=== PATIENT | female | born 1950 | race Caucasian/White ===

== ENCOUNTER 2020-12-02 14:03 | Observation (INO) | payer MEDICARE, SELFPAY ==
[2020-12-02] VITALS (14 sets, daily range): BP systolic 105–133; BP diastolic 57–108; PULSE 74–90; RESP 16–20; TEMP 36.2–36.5; O2SAT 98–100
--- NOTE | ~2020-12-02 | XR_ITS ---
XR chest 1V portable DATE: 12/02/2020 14:31 INDICATION: Weakness. TECHNIQUE: Portable upright AP chest on 12/02/2020 1428 hours COMPARISON: 01/18/2018 PA and lateral chest FINDINGS: There is prominent dextroscoliosis and degenerative spurring of the thoracic spine. Diffuse osteopenia. No pulmonary infiltrate or consolidation, pleural effusion or pulmonary vascular congestion or pneumo thorax is evident. Heart size appears within normal limits. IMPRESSION: No active cardiopulmonary disease Reviewed, dictated and finalized at location A.
--- NOTE | 2020-12-02 14:06 | ECG_ITS ---
Measurements Intervals [place] Rate: 80 P: 40 NH: 137 QRS: 57 QRSD: 95 T: 18 QT: 364 QTc: 422 Interpretive Statements SINUS RHYTHM BORDERLINE ST-T WAVE ABNORMALITY- ANTEROLAT/INF LEADS BASELINE ARTIFACT- I, II, III, AVR, AVL, AVF, V1-V6 BORDERLINE ECG Electronically Signed On 12-02-2020 16:14:43 CDT by Kedar Guzman D.O.
[2020-12-02 14:26] LABS: Basophils Percent Auto 0.4 % (0.2-1.2); Eosinophils Absolute Auto 0.2 K/mm3 (0-0.3); Eosinophils Percent Auto 2.7 % (0-4.4); Hematocrit 39.7 % (37.0-47.0); Immature Granulocyte Absolute 0.02 K/mm3 (0.00-0.031); Immature Granulocyte Percent A 0.3 % (0-0.5); Lymphocytes Absolute Auto 1.81 K/mm3 (0.9-3.2); Lymphocytes Percent Auto 24.2 % (18.3-44.2); Mean Corpuscular HGB Conc 35.3 g/dl (32-36); Mean Corpuscular Hemoglobin 31.3 pg (26-34); Mean Corpuscular Volume 88.6 fl (80-100); Mean Platelet Volume 10.8 fl (7.4-10.4); Monocytes Absolute Auto 0.6 K/mm3 (0.1-0.6); Monocytes Percent Auto 8.3 % (2.6-8.5); Neutrophils Absolute Auto 4.8 K/mm3 (1.3-6.7); Neutrophils Percent Auto 64.1 % (45.5-73.1); Platelet Count Result 306 k/mm3 (150-375); Red Blood Count 4.48 M/mm3 (4.2-5.4); Red Cell Distribution Width 12.2 % (11.5-14.5); White Blood Count 7.5 K/mm3 (4.5-10.0)
[2020-12-02 14:32] LABS: Potassium 3.7 mmol/L (3.4-5.0)
[2020-12-02 14:36] LABS: Alanine Aminotransferase 40 U/L (4-35); Albumin Level 4.3 g/dL (3.5-5.1); Alkaline Phosphatase 59 U/L (38-126); Anion Gap 10 mmol/L (8-16); Aspartate Amino Transferase 34 U/L (14-36); Bilirubin,Total 0.6 mg/dL (0.2-1.3); Blood Urea Nitrogen 31 mg/dL (7-17); Calcium 8.3 mg/dL (8.4-10.2); Carbon Dioxide 24 mmol/L (22-30); Chloride 93 mmol/L (98-107); Estimated Glomerular Filt Rate 44; Glucose 126 mg/dL (65-105); Sodium 127 mmol/L (137-145)
[2020-12-02 14:43] LABS: Add Urine Microscopic? YES; Appearance Urine Cloudy (Clear); Bacteria Urine 2+ /hpf; Bilirubin Urine Negative (Negative); Blood Urine Negative (Negative); Color Urine Amber (Yellow); Glucose Urine UA Negative (Negative); Hyaline Casts Urine 20-29 /lpf; Ketones Urine Trace mg/dL (Negative); Leukocyte Esterase Ur 3+ LEU/UL (Negative); Mucus Urine Moderate /lpf; Nitrate Urine Negative (Negative); Protein Urine 1+ mg/dL (Negative); Specific Grav Ur 1.017 (1.001-1.035); Squamous Epithelial Cell Urine Many /hpf (Few); WBC Urine >75 /hpf
[2020-12-02 14:45] LABS: Troponin I < 0.012 ng/mL (0.000-0.034)
[2020-12-02] MEDS: SODIUM CHLORIDE 0.9% IV 1,000 ML 999 ML IV CONT (15:31)
--- NOTE | 2020-12-02 15:43 | ED.WEAKNESS ---
HPI - Weakness General Chief complaint: Weakness Stated complaint: WEAKNESS/DIZZY Time Seen by Provider: 12/02/20 14:05 Source: patient, family, RN notes reviewed and old records reviewed Mode of arrival: ambulatory Limitations: no limitations History of Present Illness HPI Narrative: Patient is 69 years old white female presented to the ED with generalized weakness nausea vomiting, or other vomiting, dizziness and lightheadedness. PT had buzzing in the ears, started on Decadron and Claritin by her ENT Friday, 1 day later started having nausea and vomiting, poor appetite, not feeling well, today was not able to get out her bed without processing assistant, her was trying to assist her to the bathroom, patient almost collapsed on the floor, does not remember exactly what happened. Currently patient is asymptomatic. Patient denies any fever, chills, headache, chest pain, palpitation, shortness of breath, abdominal pain or back pain. Related Data Home Medications Medication Instructions Recorded Confirmed calcium citrate 315 mg 1 tablet PO BID 11/22/19 07/31/20 calcium-vitamin D3 6.25 mcg (250 unit) tablet risedronate 150 mg tablet 150 mg PO MONTHLY 11/22/19 07/31/20 fluticasone propionate 50 See Rx Instructions INTRANASAL 07/31/20 07/31/20 mcg/actuation nasal DAILY spray,suspension docusate sodium [Colace] 50 mg PO DAILY 12/02/20 loratadine [Claritin] 10 mg PO DAILY 12/02/20 mecobalamin (vitamin B12) 1,000 mcg PO DAILY 12/02/20 wheat dextrin [Benefiber (wheat g PO 12/02/20 dextrin)] Allergies Allergy/AdvReac Type Severity Reaction Status Date / Time No Known Allergies Allergy Unverified 12/02/20 14:04 Review of Systems Review of Systems: Narrative: CONSTITUTIONAL: Denies fever, chills, or sweats. EYES: Denies visual changes, redness, or discharge. ENT: Denies rhinorrhea, congestion, sore throat, or otalgia. CARDIOVASCULAR: Denies chest pain, palpitations, or edema. RESPIRATORY: Denies cough or dyspnea. GASTROINTESTINAL: Denies abdominal pain, nausea, vomiting, or diarrhea. GENITOURINARY: Denies dysuria or hematuria. SKIN: Denies rash or itching. MUSCULOSKELETAL: Denies back pain, joint pain, or myalgia. NEUROLOGIC: Denies headache, numbness, or weakness. PSYCHIATRIC: Denies anxiety or depression. [facility] Past Medical History Medical History (Updated 12/02/20 @ 15:52 by Colleen Rajput MD) FH: cholecystectomy (~1999) Gastric outlet obstruction (~2014) Hemorrhoids History of high blood pressure History of one miscarriage Paraesophageal hernia (~2014) Family History Family History Mother Family history of Alzheimer's disease Father Family history of diabetes mellitus in first degree relative Patient's father is Diabetes mellitus Myelodysplasia (myelodysplastic syndrome) Sibling Multiple sclerosis Alzheimer disease Social History Social History Smoking status: Never smoker Alcohol intake: never Gender identity (if verbalized by the patient): Female Exam Narrative: Exam Narrative: General appearance: Well-developed, well-nourished Skin: Normal color Head: Normocephalic, nontraumatic Eyes: Clear conjunctiva ENT: Oropharynx normal, ears normal, nose normal Neck: Supple, nontender Chest and respiratory: Airway patent, no respiratory distress, no accessory muscle use Heart: Regular rate/rhythm Abdomen: Soft, nontender, no organomegaly, quiet bowel sounds Vascular: Normal peripheral pulses, normal capillary refill. Musculoskeletal: Normal range of motion, nontender back Neurologic: Alert and oriented ?3, [employer] is normal as tested, no gross motor deficit
--- NOTE | 2020-12-02 17:39 | PC.NURSE ---
This patient, Judith Rizvi, was admitted to [facility] Surg Room 321-01. Patient/family oriented to hospital policies and general routines including ID bracelet, bed and alarms, visiting hours, pain management, procedures, bathroom and other care routines, personal items, smoking policy, room service/diet, and visiting hours. Information on how to activate the Rapid Response Team has been discussed. Patient/Family are encouraged to report perceived risks to care and to ask questions if they do not understand what they are told or what they should do.
[2020-12-02 19:09] LABS: Magnesium 1.7 mg/dL (1.6-2.3)
[2020-12-02 19:10] LABS: Anion Gap 9 mmol/L (8-16); Blood Urea Nitrogen 24 mg/dL (7-17); Calcium 7.8 mg/dL (8.4-10.2); Carbon Dioxide 22 mmol/L (22-30); Chloride 101 mmol/L (98-107); Estimated Glomerular Filt Rate 55; Glucose 102 mg/dL (65-105); Potassium 3.8 mmol/L (3.4-5.0); Sodium 132 mmol/L (137-145)
[2020-12-02] MEDS: SODIUM CHLORIDE 0.9% IV 1,000 ML 125 ML IV CONT (19:39)
[2020-12-02 20:10] LABS: Thyroid Stimulating Hormone Reflex 0.743 uIU/mL (0.465-4.68)
--- NOTE | 2020-12-02 21:30 | PM.IMHP ---
H&P: HPI History of Present Illness Date/Time: 12/02/20 21:30 Chief Complaint: Weakness and dizziness. Narrative: This is a 69-year-old female with hypertension, hyperlipidemia, and iron deficiency anemia who presented to the emergency department earlier today for evaluation of weakness and dizziness. Over the last week or so she has been experiencing a buzzing in her ears with mild vertigo. She was seen by her primary care provider last Friday and was prescribed Claritin-D and a Medrol Dosepak for ?fluid on my ears. Sometime on Friday after eating breakfast this she began to feel poorly, and had pretty severe vertigo for the rest of the day associated with nausea and dry heaves. She was able to sleep throughout the night but when she awoke on morning she once again had vertigo and nausea so she decided to stop taking the Claritin D and Medrol Dosepak as she thought perhaps those were the culprit. Unfortunately she continues to feel poorly and her oral intake has been not great due to the ongoing nausea. When she woke this morning she was ?woozy? and felt a bit lightheaded. She was able to eat some scrambled eggs for breakfast and a few crackers with tuna fish for lunch. Not long prior to arrival she developed diffuse abdominal cramping and felt need to have a bowel movement. She reports having an unremarkable bowel movement and returned back to the living room. Shortly thereafter she once again developed severe cramping, got up to go to the bathroom, and felt extremely lightheaded, sweaty, and nauseated at which time she apparently lost consciousness for a moment. Her was able to help her and she did not injure herself. In the emergency department her sodium level was found to be 12 points lower than on lab work done 8 days prior (139 --> 127). Her BUN and creatinine were also elevated comparatively. She is feeling better after receiving IV fluids with improvement in her sodium and creatinine the time of this dictation. She has never had a syncopal episode before. She has not been experiencing chest pain, pleuritic pain, palpitations, or shortness of breath. She denies sick contacts and exposure to those positive for COVID-19. Aside from the Medrol Dosepak and Claritin, she has not been taking any new medications. Review of Systems Review of Systems: Narrative: Twelve systems were reviewed with pertinent positives and negatives as per HPI. She denies fever and chills. She did have sweats today before her syncopal episode. No cough or shortness of breath. She denies cold and flu symptoms aside from the buzzing in fullness in her ear, which has improved. No focal weakness, paresthesias, auditory, or visual changes. No history of cardiac disease or dysrhythmia. She denies dysuria, urgency, and hesitancy but has noticed that her urine has smelled strong. No lower abdomen or back pain. Except as documented, all other systems were reviewed and are negative. [facility] Past Medical History Medical History (Updated 12/02/20 @ 23:23 by Kelly Alcantar PA-C) Anxiety Depression Gastroesophageal reflux disease Gout Hemorrhoids Hiatal hernia History of urinary tract infection Hyperlipidemia Hypertension Iron deficiency anemia Osteoarthritis Surgical History Surgical History (Updated 12/02/20 @ 23:22 by Kelly Alcantar PA-C) History of exploratory laparotomy (~1967) History of laparoscopic cholecystectomy (~03/2005) History of Leo fundoplication (~01/19/18) Laparoscopic repair of incarcerated paraesophageal hiatal hernia with Leo fundoplication by Dr. Stevens. History of parathyroidectomy (~2010) Family History Family History Mother Family history of Alzheimer's disease Father Family history of diabetes mellitus in first degree relative Patient's father is Diabetes mellitus Myelodysplasia (myelodysplastic syndrome) Sibling Ha
[2020-12-02 21:41] LABS: Creatinine Urine 28.5 mg/dL
[2020-12-02 21:43] LABS: Sodium Urine Random 46 meq/L
[2020-12-02] MEDS: carvediloL 25 MG TABLET PO (23:20)
[2020-12-02] MEDS: PRAVASTATIN SODIUM 20 MG TABLET PO (23:20)
[2020-12-03] VITALS: PULSE 81
[2020-12-03 00:06] LABS: Sodium 130 mmol/L (137-145)
[2020-12-03 03:32] VITALS: O2SAT 95
[2020-12-03 04:00] VITALS: PULSE 76
[2020-12-03] MEDS: SODIUM CHLORIDE 0.9% IV 1,000 ML 75 ML IV CONT (05:26)
[2020-12-03 06:00] VITALS: BP 128/68; PULSE 84; RESP 18; TEMP 36.4; O2SAT 99
[2020-12-03 06:02] LABS: Anion Gap 4 mmol/L (8-16); Blood Urea Nitrogen 18 mg/dL (7-17); Carbon Dioxide 25 mmol/L (22-30); Chloride 102 mmol/L (98-107); Estimated Glomerular Filt Rate > 60; Glucose 86 mg/dL (65-105); Potassium 3.5 mmol/L (3.4-5.0); Sodium 131 mmol/L (137-145)
[2020-12-03 08:00] VITALS: PULSE 82
[2020-12-03] MEDS: carvediloL 25 MG TABLET PO (08:34)
[2020-12-03] MEDS: SOLIFENACIN 5 MG TABLET 10 MG PO (08:34)
[2020-12-03] MEDS: CYANOCOBALAMIN 1,000 MCG TABLET 1000 MCG PO (08:35)
[2020-12-03] MEDS: POLYSACCHARIDE IRON COMPLEX 150 MG CAPSULE PO (08:35)
[2020-12-03] MEDS: LORATADINE 10 MG TABLET PO (08:35)
[2020-12-03] MEDS: DOCUSATE SODIUM 100 MG CAPSULE PO (08:35)
[2020-12-03] MEDS: FLUTICASONE PROPIONATE 0.05% NA SPR 16 GM BTL (*BKC) 2 SPRAY NASAL (08:35)
[2020-12-03 10:31] VITALS: BMI 24.5
[2020-12-03 12:00] VITALS: PULSE 87
--- NOTE | 2020-12-03 14:05 | PM.DS ---
DS: Admitting Diagnosis Admitting Diagnosis Admitting Diagnosis: Syncope DS: Discharge Diagnosis Discharge Diagnosis (1) Dehydration: Code(s): E86.0 - Dehydration Status: Acute Assessment and Plan: She had poor oral intake due to feeling unwell for several days with associated nausea and vomiting. She had elevated BUN and creatinine. This was also felt to be the reason for her hyponatremia. She was rehydrated with IV fluids. She appeared euvolemic following. Her labs improved. We discussed the importance of maintaining adequate oral intake. (2) Hyponatremia: Code(s): E87.1 - Hypo-osmolality and hyponatremia Status: Acute Assessment and Plan: She had outpatient labs 8 days prior to arrival with normal sodium levels (139). Upon arrival, sodium was decreased by 12 points at 127. FENa 1.2%. Likely related to dehydration as above and sodium improved with fluid resuscitation. Her hydrochlorothiazide was discontinued. She will repeat BMP in 1 week. (3) Vasovagal syncope: Code(s): R55 - Syncope and collapse Status: Acute Assessment and Plan: She felt lightheaded and sweaty upon standing to use the restroom, and reportedly lost consciousness for a brief moment. Seems vasovagal in origin and likely worsened by dehydration. She did not have associated chest pain, palpitations, or shortness of breath. She was not orthostatic. Telemetry reviewed which showed sinus rhythm with no arrhythmias or pauses. (4) Bacteriuria with pyuria: Code(s): R82.71 - Bacteriuria; R82.81 - Pyuria Status: Acute Assessment and Plan: UA shows bacteriuria and pyuria however she had no urinary symptoms. Urine culture negative. No need for antibiotic therapy. (5) Hypertension: Code(s): I10 - Essential (primary) hypertension Status: Acute Assessment and Plan: BP reviewed and was well controlled. Her home [id number] was discontinued. Olmesartan and amlodipine were resumed individually at same dose. Hydrochlorothiazide discontinued due to hyponatremia. DS: Summary Hospital Course Reason for hospitalization: Syncope Hospital Course: Date of admission: 12/02/2020 Date of discharge: 12/03/2020 Judith Rizvi is a 69-year-old female with history of hypertension, hyperlipidemia, iron deficiency anemia, and GERD who presented to the emergency department from home on 12/02/2020 with complaints of generalized weakness, dizziness, and lightheadedness and had a brief syncopal episode that afternoon. Upon presentation to the emergency department, her vital signs were stable, CBC unremarkable, sodium was 127, BUN 31, creatinine 1.2, additional electrolytes stable, urinalysis abnormal with 3+ leuk esterase and >75 WBC, however with many squamous cells, and chest x-ray showed no active cardiopulmonary disease. She was admitted to the hospitalist service for further evaluation and management. Please see above for further details. She was rehydrated. Her symptoms resolved and she began feeling much better. She requested discharge home. Given her overall improvement, she was determined to no longer require inpatient care and felt to be stable for discharge. We discussed worrisome signs and symptoms for which to return and she was educated on her medications. She was discharged in hemodynamically stable condition on 12/03/2020. Status at Discharge Functional status at discharge: independent ambulation Overall status at discharge: patient is back to baseline Time Spent with Patient Time attestation: Total time spent providing and/or coordinating discharge services: 45 minutes Time spent: Greater than 30 minutes Exam Narrative: Exam Narrative: Ms. Rizvi is a well-nourished, well-appearing 69-year-old female who is lying semi-recumbent in bed. She appears comfortable and is in NARD. Neuro: awake, alert and oriented x4, speech clear, no f
--- NOTE | 2020-12-03 15:07 | PC.NURSE ---
Pt has discharge orders. Pt has had IV removed, and tele box removed. Discharge paperwork has been reviewed with pt and her . Opportunities to ask questions was provided, and both exhibited good understanding of discharge instructions. Pt was assisted by wheelchair to her husbands car.
== END 2020-12-03 15:10 | disposition home or self-care (01) ==
LOC: ANHED 17:16 → ANH3MEDSUR 17:27
PROVIDERS: Physician Assistant; Admitting Provider Internal Medicine; Emergency Provider Emergency Medicine; PCP Emergency Medicine; Visit Provider Family Medicine
DX: E86.0 Dehydration (principal); E87.1 Hypo-osmolality and hyponatremia; R55 Syncope and collapse; R53.81 Other malaise; R82.81 Pyuria; I10 Essential (primary) hypertension; E78.5 Hyperlipidemia, unspecified; D50.9 Iron deficiency anemia, unspecified
CPT/HCPCS: 36415; 71045; 80048; 80053; 81001; 82570; 83735; 83930; 83935; 84295; 84300; 84443; 84484; 85025; 87086; 93005; 96361; 96365; 99285; A9270; G0378; J0696; J7030

== ENCOUNTER 2022-04-27 22:30 | Emergency (ER) | payer MEDICARE, SELFPAY ==
[2022-04-27 22:37] VITALS: BP 160/97; PULSE 92; RESP 17; TEMP 36.6; O2SAT 97
--- NOTE | 2022-04-27 22:43 | ED.DIZZY ---
HPI - Dizziness General Chief Complaint: Dizziness Stated Complaint: Vertigo, dizziness, feeling sick. Time Seen by Provider: 04/27/22 22:35 History of Present Illness HPI Narrative: 71-year-old female presents emergency room secondary some dizziness. She has been dealing with URI type symptoms for the last week to week and a half. She feels like her ears are plugged up. She got some symptoms that are consistent with vertigo. Described as spinning type sensation. She has had this before. She denies any focal weakness. She also has some loose stools which started today. She is vaccinated for COVID including the vaccination. Denies any shortness of breath. No chest pain. Related Data Home Medications Medication Instructions Recorded Confirmed calcium citrate 315 mg 1 tablet PO BID 11/22/19 07/28/21 calcium-vitamin D3 6.25 mcg (250 unit) tablet (Citracal + Vitamin D Maximum) risedronate 150 mg tablet 150 mg PO MONTHLY 11/22/19 07/28/21 fluticasone propionate 50 2 spray intranasal DAILY 07/31/20 07/28/21 mcg/actuation nasal spray,suspension (Flonase Allergy Relief) docusate sodium 50 mg capsule 50 mg PO DAILY 12/02/20 07/28/21 loratadine 10 mg tablet (Claritin) 10 mg PO DAILY 12/02/20 07/28/21 loratadine 10 mg tablet (Claritin) 10 mg PO DAILY 12/02/20 07/28/21 mecobalamin (vitamin B12) 1,000 1,000 mcg PO DAILY 12/02/20 07/28/21 mcg chewable tablet Allergies Allergy/AdvReac Type Severity Reaction Status Date / Time No Known Allergies Allergy Verified 04/27/22 22:41 Review of Systems Review of Systems: CONSTITUTIONAL: Denies fever, chills, or sweats. EYES: Denies visual changes, redness, or discharge. ENT: Nasal congestion as well as fullness to both upper ears CARDIOVASCULAR: Denies chest pain, palpitations, or edema. RESPIRATORY: Denies cough or dyspnea. GASTROINTESTINAL: Denies abdominal pain, nausea, vomiting. Having some loose stools daily GENITOURINARY: Denies dysuria or hematuria. SKIN: Denies rash or itching. MUSCULOSKELETAL: Denies back pain, joint pain, or myalgia. NEUROLOGIC: Denies headache, numbness, or weakness. PSYCHIATRIC: Denies anxiety or depression. [facility] Past Medical History Medical History Anxiety Depression Gastroesophageal reflux disease Gout Hemorrhoids Hiatal hernia History of urinary tract infection Hyperlipidemia Hypertension Iron deficiency anemia Osteoarthritis Surgical History Surgical History History of exploratory laparotomy (~1967) History of laparoscopic cholecystectomy (~03/2005) History of Leo fundoplication (~01/19/18) Laparoscopic repair of incarcerated paraesophageal hiatal hernia with Leo fundoplication by Dr. Stevens. History of parathyroidectomy (~2010) Family History Family History Mother Family history of Alzheimer's disease Father Family history of diabetes mellitus in first degree relative Patient's father is Diabetes mellitus Myelodysplasia (myelodysplastic syndrome) Sibling Multiple sclerosis Alzheimer disease Social History Social History Social History: Surrogate decision maker: Chaim Rizvi, . Code status: Full code. Smoking status: Never smoker Second hand tobacco smoke exposure: No Alcohol intake: never Substance use: never Additional living arrangements comments: Patient lives with her in [place]. Additional occupation/education comments: Retired. Gender identity (if verbalized by the patient): Female Sexual Orientation (if Verbalized by the Patient): Straight or Heterosexual Spiritual care concerns: No Exam Narrative: APPEARANCE: Well appearing, no pain or distress, well-nourished. Head Normocephalic and atraumatic. EYES: PERRLA/
[2022-04-27] MEDS: MECLIZINE HCL 25 MG TABLET PO (22:54)
[2022-04-27 23:30] LABS: SARS-CoV-2 RNA PCR Negative
[2022-04-28 00:07] VITALS: BP 122/80; PULSE 78; RESP 16; O2SAT 98
== END 2022-04-28 00:09 | disposition home or self-care (01) ==
PROVIDERS: Emergency Provider Emergency Medicine; PCP Emergency Medicine
DX: R42 Dizziness and giddiness (principal); H65.03 Acute serous otitis media, bilateral; Z20.822 Contact with and (suspected) exposure to COVID-19; E78.5 Hyperlipidemia, unspecified; I10 Essential (primary) hypertension; D50.9 Iron deficiency anemia, unspecified; K21.9 Gastro-esophageal reflux disease without esophagitis; M19.90 Unspecified osteoarthritis, unspecified site; M10.9 Gout, unspecified; Z87.440 Personal history of urinary (tract) infections; E89.2 Postprocedural hypoparathyroidism
CPT/HCPCS: 99283; A9270; C9803; U0003; U0005

== ENCOUNTER 2022-05-30 20:44 | Emergency (ER) | payer MEDICARE, SELFPAY ==
[2022-05-30] VITALS (14 sets, daily range): BP systolic 114–152; BP diastolic 62–117; PULSE 74–94; RESP 15–22; TEMP 37; O2SAT 95–100
--- NOTE | ~2022-05-30 | XR_ITS ---
EXAMINATION: XR chest 2V DATE: 05/30/2022 21:50 INDICATION: Chest pain. TECHNIQUE: Frontal and lateral views of the chest were obtained. COMPARISON: Chest single view 12/02/2020, CT abdomen and pelvis 01/16/2018 FINDINGS: There is no pneumonia, pleural effusion, or pneumothorax. The heart size is normal. Surgica l clips in the right upper quadrant are likely from cholecystectomy. IMPRESSION: 1. No acute cardiopulmonary disease. Reviewed, dictated and finalized at location A.
--- NOTE | 2022-05-30 20:45 | ECG_ITS ---
Measurements Intervals [place] Rate: 87 P: 17 [place]: 152 QRS: 3 QRSD: 85 T: -9 QT: 346 QTc: 418 Interpretive Statements SINUS RHYTHM BORDERLINE R WAVE PROGRESSION, ANTERIOR LEADS CONSIDER INFERIOR INFARCT, AGE INDETERMINATE BASELINE ARTIFACT- II, III, AVF ABNORMAL ECG COMPARED TO ECG 12/02/2020 14:09:39 NO SIGNIFICANT CHANGES Electronically Signed On 05-31-2022 21:17:42 CDT by Kedar Guzman D.O.
[2022-05-30 21:07] LABS: Basophils Percent Auto 0.4 % (0.2-1.2); Eosinophils Absolute Auto 0.2 K/mm3 (0-0.3); Eosinophils Percent Auto 2.6 % (0-4.4); Hematocrit 32.3 % (37.0-47.0); Hemoglobin 10.7 g/dL (12.0-15.0); Immature Granulocyte Absolute 0.02 K/mm3 (0.00-0.031); Immature Granulocyte Percent A 0.3 % (0-0.5); Lymphocytes Absolute Auto 1.39 K/mm3 (0.9-3.2); Lymphocytes Percent Auto 19.9 % (18.3-44.2); Mean Corpuscular HGB Conc 33.1 g/dl (32-36); Mean Corpuscular Hemoglobin 30.8 pg (26-34); Mean Corpuscular Volume 93.1 fl (80-100); Mean Platelet Volume 11.7 fl (7.4-10.4); Monocytes Absolute Auto 0.5 K/mm3 (0.1-0.6); Monocytes Percent Auto 7.3 % (2.6-8.5); Neutrophils Absolute Auto 4.9 K/mm3 (1.3-6.7); Neutrophils Percent Auto 69.5 % (45.5-73.1); Platelet Count Result 197 k/mm3 (150-375); Red Blood Count 3.47 M/mm3 (4.2-5.4); Red Cell Distribution Width 14.1 % (11.5-14.5)
[2022-05-30 21:18] LABS: INR 1.3; Partial Thromboplastin Time 26.5 SECONDS (22.3-36.8); Prothrombin Time 15.3 Seconds (11.1-14.7)
[2022-05-30 21:19] LABS: Alanine Aminotransferase 20 U/L (6-35); Albumin Level 3.9 g/dL (3.5-5.1); Alkaline Phosphatase 60 U/L (38-126); Anion Gap 6 mmol/L (8-16); Aspartate Amino Transferase 27 U/L (14-36); Bilirubin,Total 0.3 mg/dL (0.2-1.3); Blood Urea Nitrogen 12 mg/dL (7-17); Calcium 8.2 mg/dL (8.4-10.2); Carbon Dioxide 25 mmol/L (22-30); Chloride 107 mmol/L (98-107); Estimated CRCL calculation 46 ml/min; Estimated Glomerular Filt Rate > 60; Glucose 161 mg/dL (65-110); Lipase 61 U/L (23-300); Potassium 3.9 mmol/L (3.4-5.0); Sodium 138 mmol/L (137-145)
[2022-05-30 21:30] LABS: Troponin I < 0.012 ng/mL (0.000-0.034)
--- NOTE | 2022-05-30 22:31 | ED.CHESTPAIN ---
HPI - Chest Pain General Chief Complaint: Chest Pain Stated Complaint: chest pain Time Seen by Provider: 05/30/22 22:31 History of Present Illness HPI narrative: 71-year-old female here for evaluation of intermittent chest pain for the past day. Patient states the pain is described as a muscle spasm and is diffuse across her upper chest, worse with rotation of her thorax. States that she has been working out in the yard frequently and using her arms, notes soreness when she does this. States that the pain persisted for a little longer than usual today, which prompted her ED evaluation. Pain is gone at time of my evaluation without intervention. She denies any associated nausea, vomiting, diaphoresis, shortness of breath, fevers, chills, leg swelling. She has not attempted any medication. Related Data Home Medications Medication Instructions Recorded Confirmed calcium citrate 315 mg 1 tablet PO BID 11/22/19 07/28/21 calcium-vitamin D3 6.25 mcg (250 unit) tablet (Citracal + Vitamin D Maximum) risedronate 150 mg tablet 150 mg PO MONTHLY 11/22/19 07/28/21 fluticasone propionate 50 2 spray intranasal DAILY 07/31/20 07/28/21 mcg/actuation nasal spray,suspension (Flonase Allergy Relief) docusate sodium 50 mg capsule 50 mg PO DAILY 12/02/20 07/28/21 loratadine 10 mg tablet (Claritin) 10 mg PO DAILY 12/02/20 07/28/21 loratadine 10 mg tablet (Claritin) 10 mg PO DAILY 12/02/20 07/28/21 mecobalamin (vitamin B12) 1,000 1,000 mcg PO DAILY 12/02/20 07/28/21 mcg chewable tablet Allergies Allergy/AdvReac Type Severity Reaction Status Date / Time No Known Allergies Allergy Verified 04/27/22 22:41 Review of Systems Review of Systems: Gen: Denies fevers or chills Eyes: Denies eye pain or visual change ENT: Denies congestion Respiratory: Denies shortness of breath or cough CV: Reports chest pain. GI: Denies abdominal pain nausea, emesis or diarrhea : denies burning, urgency, frequency or hematuria Musculoskeletal: Denies back pain or muscle pain Neuro: Denies numbness, tingling, weakness or focal weakness Skin: Denies rash Except as documented, all other systems reviewed and negative PMFSH Past Medical History Medical History Anxiety Depression Gastroesophageal reflux disease Gout Hemorrhoids Hiatal hernia History of urinary tract infection Hyperlipidemia Hypertension Iron deficiency anemia Osteoarthritis Surgical History Surgical History History of exploratory laparotomy (~1967) History of laparoscopic cholecystectomy (~03/2005) History of Leo fundoplication (~01/19/18) Laparoscopic repair of incarcerated paraesophageal hiatal hernia with Leo fundoplication by Dr. Stevens. History of parathyroidectomy (~2010) Family History Family History Mother Family history of Alzheimer's disease Father Family history of diabetes mellitus in first degree relative Patient's father is Diabetes mellitus Myelodysplasia (myelodysplastic syndrome) Sibling Multiple sclerosis Alzheimer disease Social History Social History Social History: Surrogate decision maker: Chaim Rizvi, . Code status: Full code. Smoking status: Never smoker Second hand tobacco smoke exposure: No Alcohol intake: never Substance use: never Additional living arrangements comments: Patient lives with her in [place]. Additional occupation/education comments: Retired. Gender identity (if verbalized by the patient): Female Sexual Orientation (if Verbalized by the Patient): Straight or Heterosexual Spiritual care concerns: No Exam Narrative: APPEARANCE: Well appearing, no pain in distress, well-nourished. Head: Normocephalic and atraumat
[2022-05-31 00:23] LABS: Troponin I < 0.012 ng/mL (0.000-0.034)
== END 2022-05-31 00:49 | disposition home or self-care (01) ==
PROVIDERS: Emergency Medicine; Emergency Provider Emergency Medicine; PCP Emergency Medicine
DX: R07.89 Other chest pain (principal); E78.5 Hyperlipidemia, unspecified; I10 Essential (primary) hypertension; D50.9 Iron deficiency anemia, unspecified; K21.9 Gastro-esophageal reflux disease without esophagitis; M10.9 Gout, unspecified; M19.90 Unspecified osteoarthritis, unspecified site; E89.2 Postprocedural hypoparathyroidism; Z87.440 Personal history of urinary (tract) infections; R94.31 Abnormal electrocardiogram [ECG] [EKG]
CPT/HCPCS: 36415; 71046; 80053; 83690; 84484; 85025; 85610; 85730; 93005; 99284

== ENCOUNTER 2024-06-19 13:02 | Emergency (ER) | payer MEDICARE, SELFPAY ==
[2024-06-19 13:15] VITALS: BP 169/70; PULSE 94; RESP 16; TEMP 37.1; O2SAT 99
--- NOTE | 2024-06-19 13:18 | ED.URI ---
HPI - URI/Sore Throat General Chief Complaint: Upper Respiratory Infection Stated Complaint: head clogging Time Seen by Provider: 06/19/24 13:19 Source: patient, RN notes reviewed and old records reviewed Mode of arrival: ambulatory Limitations: no limitations History of Present Illness HPI Narrative: 73-year-old female presents to the [facility] with complaints head congestion. Reports ear fullness, nasal congestion. Has a history of vertigo and sinusitis. Patient reports that symptoms she thing started last week and maybe a day or 2 before Onset (ago): week(s) (About 1 week) Related Data Home Medications Medication Instructions Recorded Confirmed calcium 315 mg (as 1 tablet PO BID 11/22/19 06/19/24 citrate)-vitamin D3 6.25 mcg (250 unit) tablet (Citracal + Vitamin D Maximum) risedronate 150 mg tablet 150 mg PO MONTHLY 11/22/19 06/19/24 fluticasone propionate 50 2 spray intranasal DAILY 07/31/20 06/19/24 mcg/actuation nasal spray,suspension (Flonase Allergy Relief) docusate sodium 50 mg capsule 50 mg PO DAILY 12/02/20 06/19/24 loratadine 10 mg tablet (Claritin) 10 mg PO DAILY 12/02/20 06/19/24 Allergies Allergy/AdvReac Type Severity Reaction Status Date / Time No Known Allergies Allergy Verified 06/19/24 13:17 Review of Systems Review of Systems: All systems reviewed & are unremarkable except as noted in HPI and below Constitutional: Constitutional: Reports no additional constitutional complaints Eyes: Eyes: Reports no additional eye complaints ENT: Reports as per HPI, Reports otalgia and Reports nasal congestion Cardiovascular: Cardiovascular: Reports no additional cardiovascular complaints, Denies chest pain and Denies dyspnea Respiratory: Respiratory: Reports no additional respiratory complaints, Denies chest congestion, Denies cough and Denies dyspnea Gastrointestinal: Gastrointestinal: Reports no additional gastrointestinal complaints, Denies abdominal pain, Denies nausea and Denies vomiting Musculoskeletal: Musculoskeletal: Reports no additional musculoskeletal complaints Integumentary/Breasts: Skin/Breast: Reports system reviewed and no additional complaints, except as docu Neurologic: Reports system reviewed and no additional complaints, except as documented Psychiatric: Psychiatric: Reports no additional psychiatric complaints Allergic/Immunologic: Allergic/Immunologic: Reports no additional allergic/immunologic complaints PMFSH Past Medical History Medical History Allergic rhinitis caused by mold Anxiety B12 deficiency Depression Dysfunction of both eustachian tubes Environmental allergies Gastroesophageal reflux disease Gout Hemorrhoids Hiatal hernia History of urinary tract infection Hyperlipidemia Hyperparathyroidism, unspecified Hypertension Idiopathic gout, unspecified site Incarcerated paraesophageal hernia Iron deficiency anemia Iron deficiency anemia due to chronic blood loss Major depressive disorder, recurrent, moderate Osteoarthritis Osteopenia of multiple sites Overactive bladder Unilateral hearing loss Vertigo Surgical History Surgical History History of exploratory laparotomy (~1967) History of laparoscopic cholecystectomy (~03/2005) History of Leo fundoplication (~01/19/18) Laparoscopic repair of incarcerated paraesophageal hiatal hernia with Leo fundoplication by Dr. Stevens. History of parathyroidectomy (~2010) S/P Leo fundoplication (with gastrostomy tube placement) Family History Family History Mother Family history of Alzheimer's disease Father Family history of diabetes mellitus in first degree relative Patient's father is Diabetes mellitus Myelodysplasia (myelodysplastic syndrome) Sibling Multiple sclerosis Alzheimer disease Soci
== END 2024-06-19 13:33 | disposition home or self-care (01) ==
PROVIDERS: Emergency Provider Nurse Practitioner; PCP Emergency Medicine
DX: J32.9 Chronic sinusitis, unspecified (principal); J06.9 Acute upper respiratory infection, unspecified; E53.8 Deficiency of other specified B group vitamins; K21.9 Gastro-esophageal reflux disease without esophagitis; E78.5 Hyperlipidemia, unspecified; I10 Essential (primary) hypertension; F41.8 Other specified anxiety disorders
CPT/HCPCS: 99213; G0463

== ENCOUNTER 2025-04-19 08:24 | Emergency (ER) | payer MEDICARE, SELFPAY ==
--- OUTSIDE RECORDS SUMMARY | 2025-04-19 08:28 | XMS_ITS | Patient Health Record ---
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 Name Role Phone MILTON DOYLE Primary Care Provider [phone] Reason For Referral No Information Problems Problem Type SNOMED Code ICD Code Onset Dates Problem Status W/U Status Risk Notes Problem Primary hyperparathyroidism (84141325) Primary hyperparathyroidism (E21.0) 2013 Active confirmed [facility] [place] [place]-63 [address]10- Plan Of Treatment No Information Insurance Providers Payer Name Payer Address Payer Phone Subscriber Number Group Number Insured Name Patient Relationship to Insured Coverage Start Date Coverage End Date MEDICARE [address] [place] [address] [id number] Judith Rizvi Self - patient is the insured [place] PPO/PPC/FE P [address] [place] [address] [id number] Judith Rizvi Self - patient is the insured
[2025-04-19 08:40] VITALS: BP 156/75; PULSE 75; RESP 18; TEMP 36; O2SAT 100
--- NOTE | 2025-04-19 08:54 | ED.URI ---
HPI - URI/Sore Throat General Chief Complaint: Upper Respiratory Infection Stated Complaint: Sinus Infection Time Seen by Provider: 04/19/25 09:00 Source: patient and RN notes reviewed Mode of arrival: ambulatory Limitations: no limitations History of Present Illness HPI Narrative: 74-year-old female presents with concern for 5 day history of runny nose, stuffy nose, ear pressure and vertigo. Reports she gets vertigo when she has symptoms like this. She denies any headache, weakness in any extremity. She has not taken any medication for her symptoms. She reports postnasal drainage. She reports occasional cough. MD elicited complaint: rhinorrhea and nasal congestion Related Data Home Medications ?Medication ?Instructions ?Recorded ?Confirmed ?Last Taken ?Type risedronate 150 mg tablet 150 mg PO MONTHLY 11/22/19 02/25/25 Unknown History fluticasone propionate 50 2 spray intranasal DAILY 07/31/20 02/25/25 Unknown History mcg/actuation nasal spray,suspension (Flonase Allergy Relief) loratadine 10 mg tablet (Claritin) 10 mg PO DAILY 12/02/20 02/25/25 Unknown History pravastatin 20 mg tablet See Rx Instructions .Route .COMPLEX 08/27/24 02/25/25 Unknown History Allergies Allergy/AdvReac Type Severity Reaction Status Date / Time No Known Allergies Allergy Verified 04/19/25 08:46 Review of Systems Review of Systems: CONSTITUTIONAL: Denies malaise, chills, sweats, or fever. EYES: Denies visual changes, redness, or discharge. ENT: Reports rhinorrhea, congestion. Denies sinus pain, otalgia and sore throat. CARDIOVASCULAR: Denies chest pain, palpitations, or edema. RESPIRATORY: Reports occasional cough. Denies dyspnea. GASTROINTESTINAL: Denies abdominal pain, nausea, vomiting, diarrhea SKIN: Denies rash or itching. MUSCULOSKELETAL: Denies myalgia. NEUROLOGIC: Denies headache. All systems reviewed & are unremarkable except as noted in HPI and below PMFSH Past Medical History Medical History Vertigo Unilateral hearing loss Overactive bladder Osteopenia of multiple sites Major depressive disorder, recurrent, moderate Iron deficiency anemia due to chronic blood loss Incarcerated paraesophageal hernia Idiopathic gout, unspecified site Hyperparathyroidism, unspecified Environmental allergies Dysfunction of both eustachian tubes B12 deficiency Allergic rhinitis caused by mold Bacteriuria with pyuria Dehydration Hyperlipidemia Hypertension History of urinary tract infection Anxiety Osteoarthritis Gout Iron deficiency anemia Gastroesophageal reflux disease Hiatal hernia Depression JANNA (acute kidney injury) Acute hyponatremia Urinary tract infection Hemorrhoids High cholesterol Surgical History Surgical History S/P Leo fundoplication (with gastrostomy tube placement) History of Leo fundoplication (~01/19/18) Laparoscopic repair of incarcerated paraesophageal hiatal hernia with Leo fundoplication by Dr. Stevens. History of parathyroidectomy (~2010) History of laparoscopic cholecystectomy (~03/2005) History of exploratory laparotomy (~1967) Family History Family History Mother Family history of Alzheimer's disease Father Family history of diabetes mellitus in first degree relative Patient's father is Diabetes mellitus Myelodysplasia (myelodysplastic syndrome) Sibling Multiple sclerosis Alzheimer disease Social History Social History Social History: Surrogate decision maker: Chaim Rizvi, . Code status: Full code. Smoking status: Never smoker Second hand tobacco smoke exposure: No Alcohol intake: never Substance use: never Do You Feel Safe in your Home?: Yes Lack of Transportation: No Lack of Food: Never True Current Housing: I Have Housing Concerned About Future Housing: No Difficulty Paying Gas/Electric Bills: No Difficulty Paying for Meds: No Currently Unemployed: No Education: High School Diploma/GED Difficulty w/ Childcare or Family Care: No Additional living arrangements comments: Patient lives with her in [place]. Additional occupation/education comments: Retired. Gender identity (if verbalized by the patient): Female Sexual Orientation (if Verbalized by the Patient): Straight or Heterosexual Spiritual care concerns: No Comments At time of signature, agree with nursing past medical, surgical, social and family history. There is no relevant family history pertinent to the presenting complaint Exam Narrative: GENERAL: Well-appearing, well-nourished, and in no acute distress. HEAD: Normocephalic EYES: PERRLA, conjunctivae clear ENT: Nares clear, turbinates edematous and erythematous, clear discharge. Mucous membranes moist. TM pearly aleman with dull light reflex bilaterally; no tragal tenderness. Oropharynx not erythematous without lesions. Tonsils not enlarged and without exudate, no drooling, no hoarseness, no trismus, uvula midline. NECK: Supple. No lymphadenopathy CHEST: Clear to auscultation, breath sounds equal. No wheezing, rhonchi, rales, or stridor. No respiratory distress, speaks in full sentences. HEART: Regular rate and rhythm. No murmur heard. SKIN: Warm, dry, no rash. NEURO: Alert and oriented x3. No focal deficits, cranial nerves 2-12 grossly intact. PSYCH: Normal mood and affect Course Course Emergency Course: Patient is aware of diagnosis, understands and agrees to treatment plan. Anticipatory guidance given. Patient agrees to follow-up as directed and is aware of reasons to seek care at the emergency department. Portions of this record may have been created with voice recognition software Level of Care: Express Care Visit Vital Signs Vital signs: Vital Signs Temperature 96.8 F L 04/19/25 08:40 Pulse Rate 75 04/19/25 08:40 Respiratory Rate 18 04/19/25 08:40 Blood Pressure 156/75 H 04/19/25 08:40 Pulse Oximetry 100 04/19/25 08:40 Temperature 96.8 F L 04/19/25 08:40 Pulse Rate 75 04/19/25 08:40 Respiratory Rate 18 04/19/25 08:40 Blood Pressure 156/75 H 04/19/25 08:40 Pulse Oximetry 100 04/19/25 08:40 Reviewed. MDM - URI/Sore Throat MDM Narrative Medical decision making narrative: Differential diagnosis considered: Pandya virus, strep pharyngitis, allergic rhinitis, upper respiratory tract infection, sinusitis, rhinosinusitis, nasopharyngitis. viral pharyngitis, otitis media, otitis externa, pneumonia, bronchitis, viral cough syndrome, viral syndrome, and influenza. Exam findings show no acute concerns or changes; patient is non-toxic appearing and is in no distress. Patient is appropriate for outpatient treatment and follow-up. Lab Data Attestation: I reviewed the patient's lab results. Critical Care Time Critical Care Time Critical Care Time: No Discharge Plan Discharge Clinical Impression: Upper respiratory infection Patient Disposition: Home Condition: Stable Instructions: Upper Respiratory Infection (ED) Additional Instructions: Take medications as prescribed Viral illness may last between 7-21 days; antibiotics do not cure viral illness and are NOT recommended at this time. Recommend antihistamine such as Benadryl at night time and Zyrtec or [place] during the day Also, recommend symptomatic treatment includes: rest, fluids, and increase humidity of the air at home. Recommend Acetaminophen as directed on the bottle to reduce fever, pain, headache. Avoid smoking/second-hand smoke. Please schedule a follow-up visit with your personal physician for further evaluation and treatment within 3-5days. Including recheck and discussion of your blood pressure. If your symptoms persist, change or worsen significantly before you can contact your personal physician then please, without delay, go to the emergency department for further evaluation. Patient Language: Kosovan Prescriptions: New methylprednisolone [Medrol (Robin)] 4 mg tablets,dose pack See Rx Instructions .ROUTE .COMPLEX Qty: 21 0RF Rx Instructions: orally per package directions ipratropium bromide 21 mcg (0.03 %) spray,non-aerosol 2 spray NASAL TID PRN (Reason: nasal drainage) Qty: 30 0RF Rx Instructions: administer into each nostril No Action fluticasone propionate [Flonase Allergy Relief] 50 mcg/actuation spray,suspension 2 spray intranasal DAILY risedronate 150 mg tablet 150 mg PO MONTHLY Patient Comments: NEXT DOSE DUE ON 2020 Rx Instructions: administer at least 30 minutes before the first food or drink of the day other than water. pravastatin 20 mg tablet See Rx Instructions .ROUTE .COMPLEX Dose Instruction: TAKE 1 TABLET BY MOUTH DAILY Rx Instructions: TAKE 1/2 TABLET BY MOUTH DAILY amlodipine 10 mg tablet 10 mg PO DAILY Qty: 90 2RF loratadine [Claritin] 10 mg Tablet 10 mg PO DAILY carvedilol 25 mg tablet See Rx Instructions .ROUTE .COMPLEX Qty: 180 2RF Dose Instruction: TAKE 1 TABLET BY MOUTH EVERY 12 HOURS Rx Instructions: TAKE 1 TABLET BY MOUTH EVERY 12 HOURS olmesartan 40 mg tablet See Rx Instructions .ROUTE .COMPLEX Qty: 90 2RF Dose Instruction: TAKE 1 TABLET BY MOUTH EVERY DAY Rx Instructions: TAKE 1 TABLET BY MOUTH EVERY DAY solifenacin 10 mg tablet See Rx Instructions .ROUTE .COMPLEX Qty: 90 2RF Dose Instruction: TAKE 1 TABLET BY MOUTH DAILY Rx Instructions: TAKE 1 TABLET BY MOUTH DAILY Follow-up/Referrals: Alton Hendricks MD [Primary Care Provider] - Time of Disposition: 09:13
== END 2025-04-19 09:20 | disposition home or self-care (01) ==
PROVIDERS: Emergency Provider Nurse Practitioner; PCP Emergency Medicine
DX: J06.9 Acute upper respiratory infection, unspecified (principal); N32.81 Overactive bladder; M85.80 Other specified disorders of bone density and structure, unspecified site; M10.00 Idiopathic gout, unspecified site; E21.3 Hyperparathyroidism, unspecified; I10 Essential (primary) hypertension; M19.90 Unspecified osteoarthritis, unspecified site; K21.9 Gastro-esophageal reflux disease without esophagitis; E78.00 Pure hypercholesterolemia, unspecified
CPT/HCPCS: 99213; G0463

== ENCOUNTER 2025-04-21 17:12 | Emergency (ER) | payer MEDICARE, SELFPAY ==
--- NOTE | ~2025-04-21 | XR_ITS ---
CHEST RADIOGRAPH, PA AND LATERAL CLINICAL HISTORY: epigastric abd pain . COMPARISON: 05/30/2022 TECHNIQUE: PA and lateral views of the chest. FINDINGS 40 degrees of dextroscoliotic curvature of the thoracic spine is identified. S shaped curvature of the thoracolumbar spine is noted. Left atrial enlargement is noted. The remainder of the cardiomediastinal silhouette is otherwise unremarkable. The lungs are clear. IMPRESSION: No focal infiltrate or effusion. Reviewed, dictated and finalized at location A.
--- NOTE | 2025-04-21 17:15 | ECG_ITS ---
Test Date: 2025-04-21 17:20:03 Measurements Intervals [place] Rate: 98 P: 36 SD: 148 QRS: 14 QRSD: 90 T: 6 QT: 333 QTc: 425 Interpretive Statements SINUS RHYTHM POSSIBLE LEFT ATRIAL ENLARGEMENT BORDERLINE R WAVE PROGRESSION, ANTERIOR LEADS BORDERLINE ST-T WAVE ABNORMALITY- INFERIOR LEADS BASELINE ARTIFACT- I, II, III, AVR, AVL, AVF, V1-V6 BORDERLINE ECG No previous ECG available for comparison Electronically Signed On 04-21-2025 20:16:55 CDT by Kedar Guzman D.O.
--- OUTSIDE RECORDS SUMMARY | 2025-04-21 17:15 | XMS_ITS | Patient Health Record ---
Author Organization [facility] Address [address] [place] [address] Care Team Providers Care Health Care Assistant Name Role Phone MILTON DOYLE Primary Care Provider [phone] Reason For Referral No Information Problems Problem Type SNOMED Code ICD Code Onset Dates Problem Status W/U Status Risk Notes Problem Primary hyperparathyroidism (02859591) Primary hyperparathyroidism (E21.0) 2013 Active confirmed [facility] [place]-63 3310- Plan Of Treatment No Information Insurance Providers Payer Name Payer Address Payer Phone Subscriber Number Group Number Insured Name Patient Relationship to Insured Coverage Start Date Coverage End Date MEDICARE [address] [place] [address] [id number] Judith Rizvi Self - patient is the insured [place] P[place]/PPC/FE P [address] [place] [address] [phone] [id number] Judith Rizvi Self - patient is the insured
[2025-04-21 17:40] VITALS: BP 159/115; PULSE 93; RESP 16; TEMP 36.7; O2SAT 99
--- NOTE | 2025-04-21 17:51 | ED_ITS ---
HPI - Abdominal Pain General Chief Complaint: Chest Pain <Candace Corrigan PA-C - Last Filed: 04/21/25 17:52> Stated Complaint: chest pain <Candace Corrigan PA-C - Last Filed: 04/21/25 17:52> Time Seen by Provider: 04/21/25 20:14 <Candace Corrigan PA-C - Last Filed: 04/21/25 17:52> Focused HPI: 74-year-old female who presents emergency department for epigastric abdominal pain that started 1.5 hours prior to arrival. Patient states she was lying on the couch when she developed a cramping sensation in her epigastrium. She states the pain has been intermittent since. She currently is not having any pain. She believes the pain worsens when she becomes ?worked up? or stress. She notes her approximately 2 years ago which is been causing her grief. She states she had potato soup for lunch around noon. She also notes she was recently started on a Medrol Dosepak for a upper respiratory infection by urgent care 2 days ago. She denies chest pain or shortness of breath, nausea or vomiting, fever. States she had a couple episodes of soft stools yesterday but that has since resolved. GENERAL: Well-appearing, well-nourished, and in no acute distress. HEAD: Normocephalic, atraumatic. CHEST: Clear to auscultation. ?No respiratory distress. ABD: Abdomen soft, nontender. No CVA tenderness HEART: Regular rate and rhythm.? NEURO: ?Alert and oriented x3. Patient screened in triage and initial orders placed.? ?Additional care and disposition to be based upon?diagnostic testing and treatment. <Candace Corrigan PA-C - Last Filed: 04/21/25 17:52> History of Present Illness HPI narrative: Agree with HPI <Niko Nuno MD - Last Filed: 04/21/25 22:02> Related Data Home Medications: Home Medications ?Medication ?Instructions ?Recorded ?Confirmed ?Last Taken ?Type risedronate 150 mg tablet 150 mg PO MONTHLY 11/22/19 02/25/25 Unknown History fluticasone propionate 50 2 spray intranasal DAILY 07/31/20 02/25/25 Unknown History mcg/actuation nasal spray,suspension (Flonase Allergy Relief) loratadine 10 mg tablet (Claritin) 10 mg PO DAILY 12/02/20 02/25/25 Unknown History pravastatin 20 mg tablet See Rx Instructions .Route .COMPLEX 08/27/24 02/25/25 Unknown History <Candace Corrigan PA-C - Last Filed: 04/21/25 17:52> Allergies/Adverse Reactions: Allergies Allergy/AdvReac Type Severity Reaction Status Date / Time No Known Allergies Allergy Verified 04/21/25 17:13 <Candace Corrigan PA-C - Last Filed: 04/21/25 17:52> Review of Systems 2 Review of Systems: Gen.: Denies fevers or chills Eyes: Denies eye pain or visual change ENT: Denies congestion Respiratory: Denies shortness of breath or cough CV: Denies chest pain or palpitations GI: Epigastric abdominal pain that is now resolved. Denies nausea, vomiting, diarrhea, constipation. denies burning, urgency, frequency or hematuria Musculoskeletal: Denies back pain or muscle pain Neuro: Denies numbness, tingling, weakness or focal weakness Skin: Denies rash Except as documented, all other systems reviewed and negative <Niko Nuno MD - Last Filed: 04/21/25 22:02> [facility] Past Medical History Medical History: Medical History Vertigo Unilateral hearing loss Overactive bladder Osteopenia of multiple sites Major depressive disorder, recurrent, moderate Iron deficiency anemia due to chronic blood loss Incarcerated paraesophageal hernia Idiopathic gout, unspecified site Hyperparathyroidism, unspecified Environmental allergies Dysfunction of both eustachian tubes B12 deficiency Allergic rhinitis caused by mold Bacteriuria with pyuria Dehydration Hyperlipidemia Hypertension History of urinary tract infection Anxiety Osteoarthritis Gout Iron deficiency anemia Gastroesophageal reflux disease Hiatal hernia Depression JANNA (acute kidney injury) Acute hyponatremia Urinary tract infection Hemorrhoids High cholesterol <Candace Corrigan PA-C - Last Filed: 04/21/25 17:52> Surgical History Surgical History: Surgical History S/P Leo fundoplication (with gastrostomy tube placement) History of Leo fundoplication (~01/19/18) Laparoscopic repair of incarcerated paraesophageal hiatal hernia with Leo fundoplication by Dr. Stevens. History of parathyroidectomy (~2010) History of laparoscopic cholecystectomy (~03/2005) History of exploratory laparotomy (~1967) <Candace Corrigan PA-C - Last Filed: 04/21/25 17:52> Family History Family History: Family History Mother Family history of Alzheimer's disease Father Family history of diabetes mellitus in first degree relative Patient's father is Diabetes mellitus Myelodysplasia (myelodysplastic syndrome) Sibling Multiple sclerosis Alzheimer disease <Candace Corrigan PA-C - Last Filed: 04/21/25 17:52> Social History Social History: Social History Social History: Surrogate decision maker: Chaim Rizvi, . Code status: Full code. Smoking status: Never smoker Second hand tobacco smoke exposure: No Alcohol intake: never Substance use: never Do You Feel Safe in your Home?: Yes Lack of Transportation: No Lack of Food: Never True Current Housing: I Have Housing Concerned About Future Housing: No Difficulty Paying Gas/Electric Bills: No Difficulty Paying for Meds: No Currently Unemployed: No Education: High School Diploma/GED Difficulty w/ Childcare or Family Care: No Additional living arrangements comments: Patient lives with her in [place]. Additional occupation/education comments: Retired. Gender identity (if verbalized by the patient): Female Sexual Orientation (if Verbalized by the Patient): Straight or Heterosexual Spiritual care concerns: No <Candace Corrigan PA-C - Last Filed: 04/21/25 17:52> Exam 2 Narrative: APPEARANCE: Mildly anxious, nontoxic, resting in bed EYES: EOMI HEENT: Normocephalic, atraumatic, OMM RESPIRATORY: No respiratory distress Clear to auscultation bilaterally with no rhonchi wheezing or rales. CARDIOVASCULAR: Regular rate and rhythm without murmurs rubs or gallops. ABDOMINAL: Soft, nontender, nondistended, no rebound or guarding MUSCULOSKELETAl: Moves all extremities. No clubbing, cyanosis or edema. NEURO: Awake and alert. Following commands, speech normal, no focal deficits SKIN:: Warm, dry. No rashes lesions or abrasions PSYCHIATRIC: Normal affect/mood, <Niko Nuno MD - Last Filed: 04/21/25 22:02> Course Vital Signs Vital signs: Vital Signs Temperature 98.0 F 04/21/25 17:40 Pulse Rate 93 04/21/25 17:40 Respiratory Rate 16 04/21/25 17:40 Blood Pressure 159/115 H 04/21/25 17:40 Pulse Oximetry 99 04/21/25 17:40 Oxygen Delivery Room Air 04/21/25 17:40 Temperature 98.0 F 04/21/25 17:40 Pulse Rate 82 04/21/25 20:50 Respiratory Rate 18 04/21/25 20:43 Blood Pressure 162/95 H 04/21/25 20:43 Pulse Oximetry 98 04/21/25 20:43 Oxygen Delivery Room Air 04/21/25 20:38 <Candace Corrigan PA-C - Last Filed: 04/21/25 17:52> Vital Signs Temperature 98.0 F 04/21/25 17:40 Pulse Rate 93 04/21/25 17:40 Respiratory Rate 16 04/21/25 17:40 Blood Pressure 159/115 H 04/21/25 17:40 Pulse Oximetry 99 04/21/25 17:40 Oxygen Delivery Room Air 04/21/25 17:40 Temperature 98.0 F 04/21/25 17:40 Pulse Rate 82 04/21/25 20:50 Respiratory Rate 18 04/21/25 20:43 Blood Pressure 162/95 H 04/21/25 20:43 Pulse Oximetry 98 04/21/25 20:43 Oxygen Delivery Room Air 04/21/25 20:38 <Niko Nuno MD - Last Filed: 04/21/25 22:02> MDM - Abdominal Pain MDM Narrative Medical decision making narrative: 74-year-old female presented to the ED for epigastric abdominal pain. Initial vital stable. Patient was asymptomatic by the time of my evaluation. Abdomen soft and nontender. Heart and lungs were clear. Initial EKG shows no concerning findings. Chest x-ray showed no acute process. CBC and CMP without significant abnormalities except for a noted hypocalcemia the patient was aware of and was being adequately worked on by her PCP. Initial troponin negative. Re-evaluation, patient continued to be asymptomatic. Repeat troponin was negative. Repeat EKG shows no concerning findings. Suspect some level of epigastric pain with anxiety especially in the setting of her dying couple years ago and her still having emotional distress related to it. She was advised follow-up with PCP in the next week for evaluation. Patient agreeable to plan. Given strict return precautions. <Niko Nuno MD - Last Filed: 04/21/25 22:02> Differential Diagnosis Differential diagnosis: Likely abdominal pain and other (costochondritis, ACS, muscle strain, GERD, PUD) <Niko Nuno MD - Last Filed: 04/21/25 22:02> Medical Records Attestation: I reviewed the patient's medical records. <Niko Nuno MD - Last Filed: 04/21/25 22:02> Lab Data Attestation: I reviewed the patient's lab results. <Niko Nuno MD - Last Filed: 04/21/25 22:02> Result diagrams: 04/21/25 18:42 04/21/25 18:42 <Candace Corrigan PA-C - Last Filed: 04/21/25 17:52> Labs: Lab Results 04/21/25 04/21/25 04/21/25 Range/Units 18:42 20:30 21:15 WBC 9.4 (4.5-10.0) K/mm3 RBC 4.01 L (4.2-5.4) M/mm3 Hgb 12.0 (12.0-15.0) g/dL Hct 37.0 (37.0-47.0) % MCV 92.3 (80-100) fl MCH 29.9 (26-34) pg MCHC 32.4 (32-36) g/dl RDW 14.6 H (11.5-14.5) % Plt Count 258 (150-375) k/mm3 MPV 11.1 H (7.4-10.4) fl Immature Gran % (Auto) 0.3 (0-0.5) % Neut % (Auto) 88.0 H (45.5-73.1) % Lymph % (Auto) 8.3 L (18.3-44.2) % [place] % (Auto) 3.1 (2.6-8.5) % Eos % (Auto) 0.1 (0-4.4) % Baso % (Auto) 0.2 (0.2-1.2) % Lymph # (Auto) 0.78 L (0.9-3.2) K/mm3 [place] # (Auto) 0.3 (0.1-0.6) K/mm3 Eos # (Auto) 0.0 (0-0.3) K/mm3 Baso # (Auto) 0.0 (0.0-0.1) K/mm3 Abs Immat Gran (auto) 0.03 (0.00-0.031) K/mm3 Absolute Neuts (auto) 8.3 H (1.3-6.7) K/mm3 Absolute Nucleated RBC 0.000 (0.0-0.012) K/mm3 Nucleated RBC % 0.0 (0.0-0.2) % PT 14.7 (11.1-14.7) Seconds INR 1.2 APTT 23.0 (22.3-36.8) Seconds Sodium 140 (137-145) mmol/L Potassium 4.3 (3.4-5.0) mmol/L Chloride 108 H (98-107) mmol/L Carbon Dioxide 23 (22-30) mmol/L Anion Gap 9 (4-12) mmol/L BUN 12 (7-17) mg/dL Creatinine 0.60 L (0.7-1.0) mg/dL Estim Creat Clear Calc Not Reportable Estimated GFR > 60 (59 - ) Glucose 111 H (65-110) mg/dL Calcium 7.8 L (8.4-10.2) mg/dL Total Bilirubin 0.3 (0.2-1.3) mg/dL AST 29 (14-36) U/L ALT 26 (6-35) U/L Alkaline Phosphatase 71 (38-126) U/L Troponin I < 0.012 < 0.012 (0.000-0.034) ng/mL Total Protein 7.7 (6.3-8.2) g/dL Albumin 4.4 (3.5-5.1) g/dL Lipase 57 (23-300) U/L Urine Color Yellow (Yellow) Urine Appearance Clear (Clear) Urine pH 6.5 (5.0-9.0) Ur Specific [place] 1.012 (1.001-1.035) Urine Protein Negative (Negative) mg/dL Urine Glucose (UA) Negative (Negative) mg/dL Urine Ketones Negative (Negative) mg/dL Ur Blood (Man) Negative (Negative) Urine Nitrate Negative (Negative) Urine Bilirubin Negative (Negative) Urine Urobilinogen 1.0 (<2.0) mg/dL Leukocyte Esterase Rfl 2+ H (Negative) SAMANTHA/UL Urine RBC 0-2 (0-2) /hpf Urine WBC 11-20 H (0-3) /hpf Ur Squamous Epith Cells None seen (Few) /hpf Urine Bacteria None seen /hpf Urine Casts 0-2 <Candace Corrigan PA-C - Last Filed: 04/21/25 17:52> Lab Results 04/21/25 04/21/25 04/21/25 Range/Units 18:42 20:30 21:15 WBC 9.4 (4.5-10.0) K/mm3 RBC 4.01 L (4.2-5.4) M/mm3 Hgb 12.0 (12.0-15.0) g/dL Hct 37.0 (37.0-47.0) % MCV 92.3 (80-100) fl MCH 29.9 (26-34) pg MCHC 32.4 (32-36) g/dl RDW 14.6 H (11.5-14.5) % Plt Count 258 (150-375) k/mm3 MPV 11.1 H (7.4-10.4) fl Immature Gran % (Auto) 0.3 (0-0.5) % Neut % (Auto) 88.0 H (45.5-73.1) % Lymph % (Auto) 8.3 L (18.3-44.2) % [place] % (Auto) 3.1 (2.6-8.5) % Eos % (Auto) 0.1 (0-4.4) % Baso % (Auto) 0.2 (0.2-1.2) % Lymph # (Auto) 0.78 L (0.9-3.2) K/mm3 [place] # (Auto) 0.3 (0.1-0.6) K/mm3 Eos # (Auto) 0.0 (0-0.3) K/mm3 Baso # (Auto) 0.0 (0.0-0.1) K/mm3 Abs Immat Gran (auto) 0.03 (0.00-0.031) K/mm3 Absolute Neuts (auto) 8.3 H (1.3-6.7) K/mm3 Absolute Nucleated RBC 0.000 (0.0-0.012) K/mm3 Nucleated RBC % 0.0 (0.0-0.2) % PT 14.7 (11.1-14.7) Seconds INR 1.2 APTT 23.0 (22.3-36.8) Seconds Sodium 140 (137-145) mmol/L Potassium 4.3 (3.4-5.0) mmol/L Chloride 108 H (98-107) mmol/L Carbon Dioxide 23 (22-30) mmol/L Anion Gap 9 (4-12) mmol/L BUN 12 (7-17) mg/dL Creatinine 0.60 L (0.7-1.0) mg/dL Estim Creat Clear Calc Not Reportable Estimated GFR > 60 (59 - ) Glucose 111 H (65-110) mg/dL Calcium 7.8 L (8.4-10.2) mg/dL Total Bilirubin 0.3 (0.2-1.3) mg/dL AST 29 (14-36) U/L ALT 26 (6-35) U/L Alkaline Phosphatase 71 (38-126) U/L Troponin I < 0.012 < 0.012 (0.000-0.034) ng/mL Total Protein 7.7 (6.3-8.2) g/dL Albumin 4.4 (3.5-5.1) g/dL Lipase 57 (23-300) U/L Urine Color Yellow (Yellow) Urine Appearance Clear (Clear) Urine pH 6.5 (5.0-9.0) Ur Specific [place] 1.012 (1.001-1.035) Urine Protein Negative (Negative) mg/dL Urine Glucose (UA) Negative (Negative) mg/dL Urine Ketones Negative (Negative) mg/dL Ur Blood (Man) Negative (Negative) Urine Nitrate Negative (Negative) Urine Bilirubin Negative (Negative) Urine Urobilinogen 1.0 (<2.0) mg/dL Leukocyte Esterase Rfl 2+ H (Negative) SAMANTHA/UL Urine RBC 0-2 (0-2) /hpf Urine WBC 11-20 H (0-3) /hpf Ur Squamous Epith Cells None seen (Few) /hpf Urine Bacteria None seen /hpf Urine Casts 0-2 <Niko Nuno MD - Last Filed: 04/21/25 22:02> Imaging Data Radiologist's impression: ITS Impressions Chest X-Ray 04/21/25 18:21 IMPRESSION: No focal infiltrate or effusion. <Candace Corrigan PA-C - Last Filed: 04/21/25 17:52> ITS Impressions Chest X-Ray 04/21/25 18:21 IMPRESSION: No focal infiltrate or effusion. <Niko Nuno MD - Last Filed: 04/21/25 22:02> ECG Data EKG #1: Attestation: I personally reviewed and interpreted this ECG as follows: <Niko Nuno MD - Last Filed: 04/21/25 22:02> ECG completion date: 04/21/25 <Niko Nuno MD - Last Filed: 04/21/25 22:02> ECG completion time: 21:35 <Niko Nuno MD - Last Filed: 04/21/25 22:02> Prior ECG tracings: not available for review <Niko Nuno MD - Last Filed: 04/21/25 22:02> Interpretation: Sinus rhythm with sinus arrhythmia, normal axis, normal intervals, poor R-wave progression, no acute ST or T-wave changes <Niko Nuno MD - Last Filed: 04/21/25 22:02> EKG #2: Attestation: I personally reviewed and interpreted this ECG as follows: <Niko Nuno MD - Last Filed: 04/21/25 22:02> ECG completion date: 04/21/25 <Niko Nuno MD - Last Filed: 04/21/25 22:02> ECG completion time: 21:35 <Niko Nuno MD - Last Filed: 04/21/25 22:02> Prior ECG tracings: available for review <Niko Nuno MD - Last Filed: 04/21/25 22:02> Interpretation: Sinus rhythm with sinus arrhythmia, normal axis, normal intervals no acute ST or T-wave changes. Compared to earlier, R-wave progression is slightly improved. <Niko Nuno MD - Last Filed: 04/21/25 22:02> Discharge Plan Discharge Clinical Impression: Abdominal pain, epigastric, Anxiety HTN (hypertension) Qualifiers: Hypertension type: essential hypertension Qualified Code(s): I10 - Essential (primary) hypertension <HEATH Marcelo Last Filed: 04/21/25 17:52> Patient Disposition: Home <HEATH Marcelo Last Filed: 04/21/25 17:52> Condition: Stable <HEATH Marcelo Last Filed: 04/21/25 17:52> Instructions: Antibiotic Form, Abdominal Pain (ED) <Candace Corrigan PA-C - Last Filed: 04/21/25 17:52> Patient Language: Bengali <HEATH Marcelo Last Filed: 04/21/25 17:52> Prescriptions: No Action methylprednisolone [Medrol (Robin)] 4 mg tablets,dose pack See Rx Instructions .ROUTE .COMPLEX Qty: 21 0RF Rx Instructions: orally per package directions ipratropium bromide 21 mcg (0.03 %) spray,non-aerosol 2 spray NASAL TID PRN (Reason: nasal drainage) Qty: 30 0RF Rx Instructions: administer into each nostril fluticasone propionate [Flonase Allergy Relief] 50 mcg/actuation spray,suspension 2 spray intranasal DAILY risedronate 150 mg tablet 150 mg PO MONTHLY Patient Comments: NEXT DOSE DUE ON 2020 Rx Instructions: administer at least 30 minutes before the first food or drink of the day other than water. pravastatin 20 mg tablet See Rx Instructions .ROUTE .COMPLEX Dose Instruction: TAKE 1 TABLET BY MOUTH DAILY Rx Instructions: TAKE 1/2 TABLET BY MOUTH DAILY amlodipine 10 mg tablet 10 mg PO DAILY Qty: 90 2RF loratadine [Claritin] 10 mg Tablet 10 mg PO DAILY carvedilol 25 mg tablet See Rx Instructions .ROUTE .COMPLEX Qty: 180 2RF Dose Instruction: TAKE 1 TABLET BY MOUTH EVERY 12 HOURS Rx Instructions: TAKE 1 TABLET BY MOUTH EVERY 12 HOURS olmesartan 40 mg tablet See Rx Instructions .ROUTE .COMPLEX Qty: 90 2RF Dose Instruction: TAKE 1 TABLET BY MOUTH EVERY DAY Rx Instructions: TAKE 1 TABLET BY MOUTH EVERY DAY solifenacin 10 mg tablet See Rx Instructions .ROUTE .COMPLEX Qty: 90 2RF Dose Instruction: TAKE 1 TABLET BY MOUTH DAILY Rx Instructions: TAKE 1 TABLET BY MOUTH DAILY <Candace Corrigan PA-C - Last Filed: 04/21/25 17:52> Follow-up/Referrals: Alton Hendricks MD [Primary Care Provider] - <Candace Corrigan PA-C - Last Filed: 04/21/25 17:52>
[2025-04-21 18:48] LABS: Hematocrit 37.0 % (37.0-47.0); Hemoglobin 12.0 g/dL (12.0-15.0); Immature Granulocyte Percent A 0.3 % (0-0.5); Lymphocytes Absolute Auto 0.78 K/mm3 (0.9-3.2); Mean Corpuscular HGB Conc 32.4 g/dl (32-36); Mean Corpuscular Hemoglobin 29.9 pg (26-34); Mean Corpuscular Volume 92.3 fl (80-100); Nucleated Red Blood Cells Absolute Auto 0.000 K/mm3 (0.0-0.012); Nucleated Red Blood Cells Perc 0.0 % (0.0-0.2); Platelet Count Result 258 k/mm3 (150-375); Red Blood Count 4.01 M/mm3 (4.2-5.4); White Blood Count 9.4 K/mm3 (4.5-10.0)
[2025-04-21 19:02] LABS: Alanine Aminotransferase 26 U/L (6-35); Albumin Level 4.4 g/dL (3.5-5.1); Alkaline Phosphatase 71 U/L (38-126); Anion Gap 9 mmol/L (4-12); Aspartate Amino Transferase 29 U/L (14-36); Bilirubin,Total 0.3 mg/dL (0.2-1.3); Blood Urea Nitrogen 12 mg/dL (7-17); Calcium 7.8 mg/dL (8.4-10.2); Carbon Dioxide 23 mmol/L (22-30); Chloride 108 mmol/L (98-107); Estimated Glomerular Filt Rate > 60; Glucose 111 mg/dL (65-110); Lipase 57 U/L (23-300); Potassium 4.3 mmol/L (3.4-5.0); Sodium 140 mmol/L (137-145); Total Protein 7.7 g/dL (6.3-8.2)
[2025-04-21 19:03] LABS: INR 1.2; Prothrombin Time 14.7 Seconds (11.1-14.7)
[2025-04-21 19:04] LABS: Partial Thromboplastin Time 23.0 Seconds (22.3-36.8)
[2025-04-21 19:13] LABS: Troponin I < 0.012 ng/mL (0.000-0.034)
[2025-04-21 20:38] VITALS: BP 180/108; PULSE 95; RESP 17; O2SAT 98
[2025-04-21 20:38] LABS: Add Urine Microscopic? YES; Appearance Urine Clear (Clear); Glucose Urine UA Negative (Negative); Leukocyte Esterase Ur 2+ LEU/UL (Negative); Nitrate Urine Negative (Negative); Non Pathogenic Casts 0-2; Specific Grav Ur 1.012 (1.001-1.035)
[2025-04-21 20:43] VITALS: BP 162/95; PULSE 87; RESP 18; O2SAT 98
[2025-04-21 20:50] VITALS: PULSE 82
[2025-04-21 21:42] LABS: Troponin I < 0.012 ng/mL (0.000-0.034)
--- NOTE | 2025-04-21 21:42 | ECG_ITS ---
Test Date: 2025-04-21 21:35:16 Measurements Intervals [place] Rate: 78 P: 38 ND: 149 QRS: 8 QRSD: 96 T: -11 QT: 386 QTc: 441 Interpretive Statements SINUS RHYTHM WITH ATRIAL PREMATURE COMPLEX DELAYED PRECORDIAL R/S TRANSITION BORDERLINE ST-T WAVE ABNORMALITY- INFERIOR LEADS BASELINE ARTIFACT- I, II, III, AVR, AVL, AVF, V1-V2 BORDERLINE ECG Compared to ECG 04/21/2025 17:20:03 No significant changes Electronically Signed On 04-22-2025 06:24:36 CDT by Kedar Guzman D.O.
[2025-04-21 22:01] VITALS: BP 154/79; PULSE 81; RESP 17; TEMP 36.5; O2SAT 99
== END 2025-04-21 22:02 | disposition home or self-care (01) ==
LOC: ANHED 21:52
PROVIDERS: Physician Assistant; Emergency Provider Student in an Organized Health Care Education/Training Program; PCP Emergency Medicine
DX: R10.13 Epigastric pain (principal); I10 Essential (primary) hypertension; F41.9 Anxiety disorder, unspecified; E78.00 Pure hypercholesterolemia, unspecified; N32.81 Overactive bladder; M10.00 Idiopathic gout, unspecified site; M85.89 Other specified disorders of bone density and structure, multiple sites; M19.90 Unspecified osteoarthritis, unspecified site; K21.9 Gastro-esophageal reflux disease without esophagitis; D50.9 Iron deficiency anemia, unspecified; Z87.440 Personal history of urinary (tract) infections; Z90.89 Acquired absence of other organs; Z90.49 Acquired absence of other specified parts of digestive tract; Z79.899 Other long term (current) drug therapy; R94.31 Abnormal electrocardiogram [ECG] [EKG]
CPT/HCPCS: 36415; 71046; 80053; 81001; 83690; 84484; 85025; 85610; 85730; 87086; 93005; 99284; A9270

== ENCOUNTER 2025-05-03 10:24 | Emergency (ER) | payer MEDICARE, SELFPAY ==
[2025-05-03 10:31] VITALS: BP 132/72; PULSE 87; RESP 19; TEMP 36.7; O2SAT 99
--- OUTSIDE RECORDS SUMMARY | 2025-05-03 10:52 | XMS_ITS | Patient Health Record ---
Author Organization [facility] Address [address] [place] [address] Care Team Providers Care Project Control Analyst Name Role Phone MILTON DOYLE Primary Care Provider [phone] Reason For Referral No Information Problems Problem Type SNOMED Code ICD Code Onset Dates Problem Status W/U Status Risk Notes Problem Primary hyperparathyroidism (63849203) Primary hyperparathyroidism (E21.0) 2013 Active confirmed [facility] [id number] Plan Of Treatment No Information Insurance Providers Payer Name Payer Address Payer Phone Subscriber Number Group Number Insured Name Patient Relationship to Insured Coverage Start Date Coverage End Date MEDICARE [address] [place] [address] [id number] Judith Rizvi Self - patient is the insured [employer] BLUE PPO/PPC/FE P [address] [place] [address] [phone] [id number] Judith Rizvi Self - patient is the insured
--- NOTE | 2025-05-03 10:59 | ED.URI ---
HPI - URI/Sore Throat General Chief Complaint: Upper Respiratory Infection Stated Complaint: Sinus Infection Time Seen by Provider: 05/03/25 10:30 Source: patient and RN notes reviewed Mode of arrival: ambulatory Limitations: no limitations History of Present Illness HPI Narrative: 74-year-old female presents Express Care complaining of upper respiratory symptoms for over 2 weeks. Patient was seen here approximately 2 weeks ago was discharge with a Medrol Dosepak and nasal spray. Patient said she did not feel much of a difference taking the Medrol Dosepak. Patient reports continued to have sinus congestion, ear pressure, sinus drainage, and a dry nonproductive cough. Patient denies any sore throat, runny nose, chest pain, shortness of breath, dizziness, lightheadedness, with nausea vomiting, diarrhea every other symptoms. Patient continues to take Claritin, and Flonase with minimal relief. Related Data Home Medications ?Medication ?Instructions ?Recorded ?Confirmed ?Last Taken ?Type risedronate 150 mg tablet 150 mg PO MONTHLY 11/22/19 02/25/25 Unknown History fluticasone propionate 50 2 spray intranasal DAILY 07/31/20 02/25/25 Unknown History mcg/actuation nasal spray,suspension (Flonase Allergy Relief) loratadine 10 mg tablet (Claritin) 10 mg PO DAILY 12/02/20 02/25/25 Unknown History pravastatin 20 mg tablet See Rx Instructions .Route .COMPLEX 08/27/24 02/25/25 Unknown History Allergies Allergy/AdvReac Type Severity Reaction Status Date / Time No Known Allergies Allergy Verified 05/03/25 10:41 Review of Systems Review of Systems: CONSTITUTIONAL: Denies fever, chills, or sweats. EYES: Denies visual changes, redness, or discharge. ENT: Denies rhinorrhea,, sore throat, or otalgia. Positive for sinus pressure and congestion. CARDIOVASCULAR: Denies chest pain, palpitations, or edema. RESPIRATORY: Positive for cough. Negative for wheezing or Dyspnea. GASTROINTESTINAL: Denies abdominal pain, nausea, vomiting, or diarrhea. GENITOURINARY: Denies dysuria or hematuria. SKIN: Denies rash or itching. MUSCULOSKELETAL: Denies back pain, joint pain, or myalgia. NEUROLOGIC: Denies headache, numbness, or weakness. PSYCHIATRIC: Denies anxiety or depression. All other systems reviewed are negative, except as documented in HPI. COUNTS INCLUDE 234 BEDS AT THE [facility] Past Medical History Medical History Vertigo Unilateral hearing loss Overactive bladder Osteopenia of multiple sites Major depressive disorder, recurrent, moderate Iron deficiency anemia due to chronic blood loss Incarcerated paraesophageal hernia Idiopathic gout, unspecified site Hyperparathyroidism, unspecified Environmental allergies Dysfunction of both eustachian tubes B12 deficiency Allergic rhinitis caused by mold Bacteriuria with pyuria Dehydration Hyperlipidemia Hypertension History of urinary tract infection Anxiety Osteoarthritis Gout Iron deficiency anemia Gastroesophageal reflux disease Hiatal hernia Depression JANNA (acute kidney injury) Acute hyponatremia Urinary tract infection Hemorrhoids High cholesterol Surgical History Surgical History S/P Leo fundoplication (with gastrostomy tube placement) History of Leo fundoplication (~01/19/18) Laparoscopic repair of incarcerated paraesophageal hiatal hernia with Leo fundoplication by Dr. Stevens. History of parathyroidectomy (~2010) History of laparoscopic cholecystectomy (~03/2005) History of exploratory laparotomy (~1967) Family History Family History Mother Family history of Alzheimer's disease Father Family history of diabetes mellitus in first degree relative Patient's father is Diabetes mellitus Myelodysplasia (myelodysplastic syndrome) Sibling Multiple sclerosis Alzheimer disease Social History Social History Social History: Surrogate decision maker: Chaim Rizvi, . Code status: Full code. Smoking status: Never smoker Second hand tobacco smoke exposure: No Alcohol intake: never Substance use: never Do You Feel Safe in your Home?: Yes Lack of Transportation: No Lack of Food: Never True Current Housing: I Have Housing Concerned About Future Housing: No Difficulty Paying Gas/Electric Bills: No Difficulty Paying for Meds: No Currently Unemployed: No Education: High School Diploma/GED Difficulty w/ Childcare or Family Care: No Additional living arrangements comments: Patient lives with her in [place]. Additional occupation/education comments: Retired. Gender identity (if verbalized by the patient): Female Sexual Orientation (if Verbalized by the Patient): Straight or Heterosexual Spiritual care concerns: No Comments At the time of my signature, I reviewed and agree with the nursing past medical, surgical, social, and family history. There is no relevant family history pertinent to the patient complaint. Exam Narrative: GENERAL: This is a well-nourished, well-developed adult, in no apparent distress. They are non ill-appearing, nontoxic appearing. HEAD: normocephalic, atraumatic. EYES: Sclera clear/white. Conjunctiva normal. Vision is grossly intact. Extraocular movements intact EARS: External ears normal, auditory canals clear and without drainage, TMs normal without perforation. Hearing grossly intact. NOSE: External nose normal with no obvious nasal discharge, nasal turbinates erythematous without exudate, no rhinorrhea. Maxillary sinus tenderness to palpation. THROAT: Mucous membranes moist, posterior pharynx boggy without erythema. No exudate. Uvula midline. Postnasal drip present. NECK: Neck supple, non-tender without lymphadenopathy, masses or thyromegaly. CARDIOVASCULAR: Regular rate and rhythm without murmurs, gallops, or rubs. RESPIRATORY: Clear to auscultation. Breath sounds equal bilaterally. No wheezes, rales, or rhonchi. SKIN: warm, Dry, intact with no suspicious lesions or rash, good texture and turgor. NEURO: awake, alert, and oriented to person, place and time. There were no obvious focal neurologic abnormalities. EXTREMITIES: No joint tenderness, effusion, or edema noted. Course Course Emergency Course: Portions of this record may have been created with voice recognition software Level of Care: Express Care Visit Vital Signs Vital signs: Vital Signs Temperature 98.1 F 05/03/25 10:31 Pulse Rate 87 05/03/25 10:31 Respiratory Rate 05/03/25 10:31 Blood Pressure 132/72 05/03/25 10:31 Pulse Oximetry 99 05/03/25 10:31 Oxygen Delivery Room Air 05/03/25 10:31 Temperature 98.1 F 05/03/25 10:31 Pulse Rate 87 05/03/25 10:31 Respiratory Rate 05/03/25 10:31 Blood Pressure 132/72 05/03/25 10:31 Pulse Oximetry 99 05/03/25 10:31 Oxygen Delivery Room Air 05/03/25 10:31 Reviewed MDM - URI/Sore Throat MDM Narrative Medical decision making narrative: Given patient's length of symptoms it is likely she has a bacterial sinusitis. Will prescribe Augmentin. Discussed physical exam findings. Advised supportive measures and signs/symptoms to go to the ER. Pt is appropriate for outpt treatment and f/u. Differential Diagnosis Differential diagnosis: Likely upper respiratory infection, sinusitis and viral infection Critical Care Time Critical Care Time Critical Care Time: No Discharge Plan Discharge Clinical Impression: Sinusitis Qualifiers: Sinusitis location: unspecified location Chronicity: acute Recurrence: non-recurrent Qualified Code(s): J01.90 - Acute sinusitis, unspecified Patient Disposition: Home Condition: Stable Instructions: Antibiotic Form, Sinusitis (ED) Additional Instructions: Take the antibiotics as directed and complete the course even if you start to feel better. You may use a Neti pot saline rinse 3 times a day with lukewarm distilled water Continue to take Tylenol or Motrin for pain. Follow instructions on the bottle. Use a humidifier or vaporizer at night. Drink plenty of water. 8-10 glasses per day. Use flonase 2 times per day for 5 days then as needed Take mucinex 2 times per day and be sure to take with 8oz of water. Follow up with Primary provider in 3-5 days Please go to the ER if he develops any difficulty breathing, worsening symptoms, or any other concerns Patient Language: Portuguese Prescriptions: New amoxicillin-pot clavulanate 875-125 mg tablet 1 tablet PO Q12H 7 Days Qty: 14 0RF No Action ipratropium bromide 21 mcg (0.03 %) spray,non-aerosol 2 spray NASAL TID PRN (Reason: nasal drainage) Qty: 30 0RF Rx Instructions: administer into each nostril fluticasone propionate [Flonase Allergy Relief] 50 mcg/actuation spray,suspension 2 spray intranasal DAILY risedronate 150 mg tablet 150 mg PO MONTHLY Patient Comments: NEXT DOSE DUE ON 2020 Rx Instructions: administer at least 30 minutes before the first food or drink of the day other than water. pravastatin 20 mg tablet See Rx Instructions .ROUTE .COMPLEX Dose Instruction: TAKE 1 TABLET BY MOUTH DAILY Rx Instructions: TAKE 1/2 TABLET BY MOUTH DAILY amlodipine 10 mg tablet 10 mg PO DAILY Qty: 90 2RF loratadine [Claritin] 10 mg Tablet 10 mg PO DAILY carvedilol 25 mg tablet See Rx Instructions .ROUTE .COMPLEX Qty: 180 2RF Dose Instruction: TAKE 1 TABLET BY MOUTH EVERY 12 HOURS Rx Instructions: TAKE 1 TABLET BY MOUTH EVERY 12 HOURS olmesartan 40 mg tablet See Rx Instructions .ROUTE .COMPLEX Qty: 90 2RF Dose Instruction: TAKE 1 TABLET BY MOUTH EVERY DAY Rx Instructions: TAKE 1 TABLET BY MOUTH EVERY DAY solifenacin 10 mg tablet See Rx Instructions .ROUTE .COMPLEX Qty: 90 2RF Dose Instruction: TAKE 1 TABLET BY MOUTH DAILY Rx Instructions: TAKE 1 TABLET BY MOUTH DAILY Follow-up/Referrals: Alton Hendricks MD [Primary Care Provider, Internal Medicine] Time of Disposition: 10:52
== END 2025-05-03 10:56 | disposition home or self-care (01) ==
PROVIDERS: PCP Emergency Medicine
DX: J01.90 Acute sinusitis, unspecified (principal); E21.3 Hyperparathyroidism, unspecified; I10 Essential (primary) hypertension; M19.90 Unspecified osteoarthritis, unspecified site; M10.00 Idiopathic gout, unspecified site; K21.9 Gastro-esophageal reflux disease without esophagitis; E78.00 Pure hypercholesterolemia, unspecified; N32.81 Overactive bladder
CPT/HCPCS: 99213; G0463

== ENCOUNTER 2025-06-09 15:06 | Emergency (ER) | payer MEDICARE, SELFPAY ==
--- NOTE | 2025-06-09 15:08 | ED.URI ---
HPI - URI/Sore Throat General Chief Complaint: Upper Respiratory Infection Stated Complaint: Sinus Infection Time Seen by Provider: 06/09/25 15:07 Source: patient Mode of arrival: ambulatory Limitations: no limitations History of Present Illness HPI Narrative: Anna is a 74-year-old female patient presenting to the clinic today with complaints of a possible sinus infection. She reports she has been having runny nose, nasal congestion, postnasal drip, sinus pressure, and right-sided ear congestion for at least 2 weeks. She was seen in the clinic on May 03 and diagnosed with a sinus infection and was given a 7 day course of Augmentin. She reports she finished that medication and made her felt slightly better however her symptoms have gradually gotten worse again. Denies any fevers, chills, body aches. No chest pain or shortness of breath. MD elicited complaint: sore throat and nasal congestion Related Data Home Medications ?Medication ?Instructions ?Recorded ?Confirmed ?Last Taken ?Type risedronate 150 mg tablet 150 mg PO MONTHLY 11/22/19 02/25/25 Unknown History fluticasone propionate 50 2 spray intranasal DAILY 07/31/20 02/25/25 Unknown History mcg/actuation nasal spray,suspension (Flonase Allergy Relief) loratadine 10 mg tablet (Claritin) 10 mg PO DAILY 12/02/20 02/25/25 Unknown History Allergies Allergy/AdvReac Type Severity Reaction Status Date / Time No Known Allergies Allergy Verified 06/09/25 15:15 Review of Systems Review of Systems: Pertinent positives per HPI. Patient denies any fever, chills, rash, visual changes, dizziness, cough, shortness of breath, chest pain, palpitations, nausea, vomiting, diarrhea, constipation, abdominal pain, or any urinary issues. [facility] Past Medical History Medical History Vertigo Unilateral hearing loss Overactive bladder Osteopenia of multiple sites Major depressive disorder, recurrent, moderate Iron deficiency anemia due to chronic blood loss Incarcerated paraesophageal hernia Idiopathic gout, unspecified site Hyperparathyroidism, unspecified Environmental allergies Dysfunction of both eustachian tubes B12 deficiency Allergic rhinitis caused by mold Bacteriuria with pyuria Dehydration Hyperlipidemia Hypertension History of urinary tract infection Anxiety Osteoarthritis Gout Iron deficiency anemia Gastroesophageal reflux disease Hiatal hernia Depression JANNA (acute kidney injury) Acute hyponatremia Urinary tract infection Hemorrhoids High cholesterol Surgical History Surgical History S/P Leo fundoplication (with gastrostomy tube placement) History of Leo fundoplication (~01/19/18) Laparoscopic repair of incarcerated paraesophageal hiatal hernia with Leo fundoplication by Dr. Stevens. History of parathyroidectomy (~2010) History of laparoscopic cholecystectomy (~03/2005) History of exploratory laparotomy (~1967) Family History Family History Mother Family history of Alzheimer's disease Father Family history of diabetes mellitus in first degree relative Patient's father is Diabetes mellitus Myelodysplasia (myelodysplastic syndrome) Sibling Multiple sclerosis Alzheimer disease Social History Social History Social History: Surrogate decision maker: Chaim Quesadachristian, . Code status: Full code. Smoking status: Never smoker Second hand tobacco smoke exposure: No Alcohol intake: never Substance use: never Do You Feel Safe in your Home?: Yes Lack of Transportation: No Lack of Food: Never True Current Housing: I Have Housing Concerned About Future Housing: No Difficulty Paying Gas/Electric Bills: No Difficulty Paying for Meds: No Currently Unemployed: No Education: High School Diploma/GED Difficulty w/ Childcare or Family Care: No Additional living arrangements comments: Patient lives with her in [place]. Additional occupation/education comments: Retired. Gender identity (if verbalized by the patient): Female Sexual Orientation (if Verbalized by the Patient): Straight or Heterosexual Spiritual care concerns: No Comments At the time of my signature, I reviewed and agree with the nursing past medical, surgical, social, and family history. There is no relevant family history pertinent to the patient complaint. Exam Narrative: General: Well-developed, well nourished, in no apparent distress Head: Normocephalic, atraumatic Eyes: Pupils equally round and reactive to light bilaterally, EOM intact, sclera and conjunctive clear, no discharge, lids normal Ears: TMs intact and congested, ear canals clear, no drainage, grossly hearing normal. Nose: Nares patent, yellow nasal discharge, moderate inflammation, maxillary sinus tenderness. Mouth: Oral pharynx red without lesions or masses, good dentition, MMM. Postnasal drip Neck: Supple, trachea midline, no enlargement of anterior or posterior cervical nodes, no thyroid masses or goiter palpable. Cardio: Regular rate and rhythm, s1 and s2 normal, no murmur appreciated. Resp: Clear to auscultation bilaterally, no rhonchi, rales, wheezing or rubs Course Course Emergency Course: Portions of this record may have been created with voice recognition software. Level of Care: Express Care Visit Vital Signs Vital signs: Vital Signs Temperature 37.2 C 06/09/25 15:12 Pulse Rate 97 06/09/25 15:12 Respiratory Rate 18 06/09/25 15:12 Blood Pressure 160/76 H 06/09/25 15:12 Pulse Oximetry 100 06/09/25 15:12 Oxygen Delivery Room Air 06/09/25 15:12 Temperature 37.2 C 06/09/25 15:12 Pulse Rate 97 06/09/25 15:12 Respiratory Rate 18 06/09/25 15:12 Blood Pressure 160/76 H 06/09/25 15:12 Pulse Oximetry 100 06/09/25 15:12 Oxygen Delivery Room Air 06/09/25 15:12 Vital signs reviewed MDM - URI/Sore Throat MDM Narrative Medical decision making narrative: At the time of visit patient is resting comfortably on the exam table. Patient appears to be nontoxic. Complaints of a possible sinus infection. She reports she has been having runny nose, nasal congestion, postnasal drip, sinus pressure, and right-sided ear congestion for at least 2 weeks. She was seen in the clinic on May 03 and diagnosed with a sinus infection and was given a 7 day course of Augmentin. She reports she finished that medication and made her felt slightly better however her symptoms have gradually gotten worse again. Denies any fevers, chills, body aches. No chest pain or shortness of breath. On exam patient has bilateral ear congestion, yellow nasal drainage with moderate inflammation of bilateral turbinates, tenderness to palpation over the maxillary sinuses, lung sounds are clear, and heart rates regular rate and rhythm Plan: I suspect patient has maxillary sinusitis. Prescription for doxycycline and prednisone was sent to the pharmacy. Supportive measures were discussed with the patient and they voiced understanding discharge instructions and agrees to treatment plan. Return precautions reviewed Differential Diagnosis Differential diagnosis: Likely upper respiratory infection, otitis media, sinusitis, viral infection, bronchitis, influenza, pharyngitis and other (COVID) Discharge Plan Discharge Clinical Impression: Acute maxillary sinusitis Qualifiers: Recurrence: recurrent Qualified Code(s): J01.01 - Acute recurrent maxillary sinusitis Patient Disposition: Home Condition: Stable Instructions: Antibiotic Form, Rhinosinusitis (ED) Additional Instructions: Take prescription medications only as prescribed-doxycycline and prednisone Increase fluids and stay well hydrated May take Tylenol or motrin as directed on bottle for pain/fever May use Flonase 1 spray in each nare daily May take OTC antihistamines such as Zyrtec or Claritin daily as directed on bottle May apply Vicks vapor rub to chest to open sinuses Sinus rinses for congestion Cepacol spray, cough drops, throat lozenges, warm tea with honey/lemon, gargle salt water to soothe throat BRAT diet for diarrhea Clear liquids x 24 hours then advance as tolerated for nausea/vomiting Go to the ED if you develop a worsening in your condition- high fever not controlled by Tylenol or Motrin, dehydration, weakness, lethargy, shortness of breath, or chest pain. Follow up with your PCP in 3-5 days if symptoms persist. Patient Language: Azeri Prescriptions: New doxycycline monohydrate 100 mg capsule 100 mg PO BID 10 Days Qty: 20 0RF prednisone 20 mg tablet 40 mg PO DAILY 5 Days Qty: 10 0RF No Action ipratropium bromide 21 mcg (0.03 %) spray,non-aerosol 2 spray NASAL TID PRN (Reason: nasal drainage) Qty: 30 0RF Rx Instructions: administer into each nostril amoxicillin-pot clavulanate 875-125 mg tablet 1 tablet PO Q12H 7 Days Qty: 14 0RF fluticasone propionate [Flonase Allergy Relief] 50 mcg/actuation spray,suspension 2 spray intranasal DAILY risedronate 150 mg tablet 150 mg PO MONTHLY Patient Comments: NEXT DOSE DUE ON 2020 Rx Instructions: administer at least 30 minutes before the first food or drink of the day other than water. amlodipine 10 mg tablet 10 mg PO DAILY Qty: 90 2RF loratadine [Claritin] 10 mg Tablet 10 mg PO DAILY carvedilol 25 mg tablet See Rx Instructions .ROUTE .COMPLEX Qty: 180 2RF Dose Instruction: TAKE 1 TABLET BY MOUTH EVERY 12 HOURS Rx Instructions: TAKE 1 TABLET BY MOUTH EVERY 12 HOURS olmesartan 40 mg tablet See Rx Instructions .ROUTE .COMPLEX Qty: 90 2RF Dose Instruction: TAKE 1 TABLET BY MOUTH EVERY DAY Rx Instructions: TAKE 1 TABLET BY MOUTH EVERY DAY solifenacin 10 mg tablet See Rx Instructions .ROUTE .COMPLEX Qty: 90 2RF Dose Instruction: TAKE 1 TABLET BY MOUTH DAILY Rx Instructions: TAKE 1 TABLET BY MOUTH DAILY pravastatin 20 mg tablet See Rx Instructions .ROUTE .COMPLEX Qty: 90 2RF Dose Instruction: TAKE 1 TABLET BY MOUTH DAILY Rx Instructions: TAKE 1 TABLET BY MOUTH DAILY Follow-up/Referrals: Alton Hendricks MD [Primary Care Provider, Internal Medicine] Time of Disposition: 15:18 Quality NIHSS Nursing Documentation ED NIHSS nursing documentation: reviewed/agree
[2025-06-09 15:12] VITALS: BP 160/76; PULSE 97; RESP 18; TEMP 37.2; O2SAT 100
--- OUTSIDE RECORDS SUMMARY | 2025-06-09 17:23 | XMS_ITS | Patient Health Record ---
Author Organization [facility] Address [address] [place] [address] Care Team Providers Care Clinical Nurse Reviewer Name Role Phone MILTON DOYLE Primary Care Provider Reason For Referral No Information Problems Problem Type SNOMED Code ICD Code Onset Dates Problem Status W/U Status Risk Notes Problem Primary hyperparathyroidism (36617146) Primary hyperparathyroidism (E21.0) 2013 Active confirmed [facility] [place] [place]10- Plan Of Treatment No Information Insurance Providers Payer Name Payer Address Payer Phone Subscriber Number Group Number Insured Name Patient Relationship to Insured Coverage Start Date Coverage End Date MEDICARE [address] [place] [phone] [id number] Judith Rizvi Self - patient is the insured [place]PPC[place]FE P [address] [place] [address] [phone] [id number] Judith Rizvi Self - patient is the insured
== END 2025-06-09 15:24 | disposition home or self-care (01) ==
PROVIDERS: Emergency Provider Nurse Practitioner Family; PCP Emergency Medicine
DX: J01.01 Acute recurrent maxillary sinusitis (principal); I10 Essential (primary) hypertension; E78.00 Pure hypercholesterolemia, unspecified; K21.9 Gastro-esophageal reflux disease without esophagitis; M10.9 Gout, unspecified; E21.3 Hyperparathyroidism, unspecified; M85.80 Other specified disorders of bone density and structure, unspecified site; N32.81 Overactive bladder
CPT/HCPCS: 99213; G0463